=== PATIENT | male | born 1940 | race Caucasian/White ===

== ENCOUNTER 2018-10-24 04:26 | Inpatient (IN) | payer MEDICARE, BC ==
[~2018-10-24] VITALS: Ht 177.8 cm; Wt 103.2 kg
[2018-10-24] VITALS (80 sets, daily range): BP systolic 77–160; BP diastolic 51–95; Ht 177.8 cm; Wt 103.2 kg
[2018-10-24] MEDS ORDERED: COREG6.25 MG PO (04:41)
[2018-10-24] MEDS ORDERED: ELIQUIS5 MG PO (04:41)
[2018-10-24] MEDS ORDERED: BAYER CHEWABLE81 MG PO (04:41)
[2018-10-24] MEDS ORDERED: MAG-OXIDE400 MG PO (04:42)
[2018-10-24] MEDS ORDERED: METOLAZONE5 MG PO (04:42)
[2018-10-24] MEDS ORDERED: ENTRESTO 24 MG1 EACH PO (04:42)
[2018-10-24] MEDS ORDERED: HUMULIN 70100 UNIT/1 SC (04:42)
[2018-10-24] MEDS ORDERED: PREDNISONE10 MG PO (04:43)
[2018-10-24] MEDS ORDERED: MEXITIL250 MG PO (04:43)
[2018-10-24] MEDS ORDERED: BETAPACE 80 MG80 MG PO (04:43)
[2018-10-24] MEDS ORDERED: RESTORIL15 MG PO (04:44)
[2018-10-24] MEDS ORDERED: ULTRAM50 MG PO (04:44)
--- NOTE | 2018-10-24 05:26 | NUR ---
PT REC'D FROM ED VIA STRETCHER ON VENT, ACCOMP BY ED STAFF AND RT. TRANSF, TO ICU BED, BENCH MACHINE OPERATOR ATTACHED. VENT SETTINGS PER RT. LEVOPHED INFUSING TO AT 22MCG/KG/MIN VIA PUMP. CONT LEVOPHED DRIP TO KEEP SBP>90, CONT TO MONITOR.
--- NOTE | 2018-10-24 05:55 | NUR ---
AT BEDSIDE, HISTORY ASSESSMENT COMPLETED, MED REC DONE. JOSEFA Webster APN SPOKE WITH . CPOC,
[2018-10-24 07:49] LABS: APTT 30.2 SECONDS (22.8-39.4); INR 1.47 (0.85-1.17); PROTIME 17.3 SECONDS (11.6-15.0)
[2018-10-24 07:57] LABS: HEMATOCRIT 44.6 % (42.0-54.0); HEMOGLOBIN 15.1 g/dL (13.5-17.5); MCH 31.1 pg (26.0-34.0); MCHC 33.9 g/dL (31.0-37.0); MEAN PLATELET VOLUME 10.7 fL (7.4-10.4); PLATELET COUNT 246 10x3/uL (130-400); RBC 4.85 10x6/uL (4.20-6.10); RDW 13.9 % (11.5-14.5); WBC 29.1 10x3/uL (4.8-10.8)
[2018-10-24 08:02] LABS: ALBUMIN 2.9 g/dL (3.4-5.0); ALKALINE PHOSPHATASE 118 U/L (46-116); ALT (SGPT) 170 U/L (10-68); BILIRUBIN - TOTAL 0.74 mg/dL (0.2-1.3); CALC OSMOLALITY 296 mosm/kg (275-300); CALCIUM 8.5 mg/dL (8.5-10.1); CHLORIDE - SERUM 106 mmol/L (98-107); CKMB 116.8 U/L (0.0-3.6); CREATINE KINASE 1023 UL (21-232); CREATININE - SERUM 2.2 mg/dL (0.6-1.3); GLUCOSE 112 mg/dL (74-106); MAGNESIUM - SERUM 2.1 mg/dL (1.8-2.4); PHOSPHOROUS 2.9 mg/dL (2.5-4.9); POTASSIUM - SERUM 4.4 mmol/L (3.5-5.1); PRO BNP 12829 pg/mL (0-450); PROTEIN - SERUM 6.4 g/dL (6.4-8.2); SODIUM 143 mmol/L (136-145); UREA NITROGEN 44 mg/dL (7-18); eGFR NON AFRICAN AMERICAN 31 mL/min (90-120)
[2018-10-24 08:04] LABS: TROPONIN-I 65.371 ng/mL (0.000-0.060)
--- NOTE | 2018-10-24 08:12 | NUR ---
DR HOLLIS CALLED. UPDATE GIVEN
--- NOTE | 2018-10-24 08:13 | NUR ---
DR DAVID BURTON.
[2018-10-24 09:33] LABS: LYMPHOCYTES 8 % (15-50); MONOCYTES 18 % (2-11); NEUTROPHILS 74 % (40-80); PLATELET ESTIMATE NORMAL
--- NOTE | 2018-10-24 09:45 | NUR ---
SPOKE TO DR SOLIS. UPDATE GIVEN OF FEVER 101.8.
--- NOTE | 2018-10-24 11:45 | NUR ---
DR HERNANDEZ AT BEDSIDE. UPDATE GIVEN
--- NOTE | 2018-10-24 13:15 | NUR ---
DR SOLIS AND DR HERNANDEZ AT BEDSIDE. UPDATE GIVEN. WILL CONTINUE TO MONITOR
--- NOTE | 2018-10-24 15:00 | NUR ---
PATIENT HAS A FEVER. TYLENOL WAS GIVEN. ICE PACKS.
--- NOTE | 2018-10-24 16:51 | CN ---
PATIENT NAME:STEVE VANN MEDICAL RECORD: [id number] : 44 LOCATION:[id number] ADMIT DATE: 10/24/18 ACCOUNT: [id number] CONSULTING PHYSICIAN: CROW HOLLIS MD REFERRING PHYSICIAN: ALIA SOLIS MD DATE OF CONSULTATION: 10/24/2018 CARDIOLOGY CONSULTATION DIAGNOSES: 1. Status post cardiopulmonary arrest. 2. Respiratory failure requiring mechanical intubation. 3. Coronary artery disease. 4. Valvular heart disease. 5. Hypertension. 6. Diabetes. 7. Congestive heart failure, chronic systolic dysfunction. 8. Cardiomyopathy. 9. Chronic obstructive pulmonary disease. 10. Smoking history. HISTORY OF PRESENT ILLNESS: Mr. Vann presented to [facility] with shortness of breath, congestive heart failure symptomatology and it rapidly progressed to cardiopulmonary arrest requiring intubation and CPR for 20 minutes. He was placed on Levophed drip, sent here for higher level of care. The family states that he recently underwent cardiac catheterization in [place] and was told that he had blockage as well as a valvular problem. It sounds like he was being considered for bypass surgery and valve replacement surgery prior to this happening. This was in May. Recently, his Lasix was stopped secondary to his worsening renal insufficiency. After this, the shortness of breath progressed. PHYSICAL EXAMINATION: GENERAL APPEARANCE: Well-nourished, well-developed, appears stated age. Level of distress, comfortable. PSYCHIATRIC: Mental status, alert, normal affect. Orientation, oriented to time, place and person. EYES: Lids and conjunctiva, noninjected. No discharge, no pallor. ENT: Lips, teeth, gums, normal dentition. Oropharynx, no cyanosis, no pallor. NECK: Carotid arteries, bilateral normal upstroke, no bruits, no thrills. JUGULAR VEINS: No jugular venous pressure or distention. CERVICAL LYMPH NODES: Nontender, nonenlarged. THYROID: Not enlarged. Nontender. No nodules. LUNGS: Respiratory effort, unlabored. CHEST: Normal curvature. No thoracic deformity. No chest wall tenderness. Percussion, resonant. Auscultation, clear. No wheezes, no rales, no rhonchi. CARDIOVASCULAR: Precordial exam, nondisplaced. No heaves or pericardial thrills. Rate and rhythm, regular. Heart sounds, normal S1, normal S2. No S3, no gallop, no rub. Systolic murmur, not heard. Diastolic murmur, not heard. EXTREMITIES: No cyanosis, no edema. Peripheral pulses, full and equal in all extremities, except as noted. No bruits appreciated. ABDOMEN: Soft, nondistended. Normal aorta. No bruit. Nontender. No masses. Liver, nontender, no hepatomegaly. Spleen, nontender, no splenomegaly. MUSCULOSKELETAL: No joint tenderness. No joint swelling. No erythema. NEUROLOGICAL: Normal gait, normal strength, normal tone. CONSULT REPORT [id number] STEVE VANN SKIN: Warm and dry. OVERALL IMPRESSION: Cardiomyopathy, valvular heart disease, coronary disease, status post arrest. At this time, his systolic blood pressure is in the 90s, heart rate is in the 80s. His troponin is 65. BNP is markedly elevated at approximately 13,000. We will get an echocardiogram to assess his overall LV function. Consider inotropic therapy if this is depressed, which it most likely will be. We will use antiplatelet, but due to his low blood pressure, we are limited in the amount of cardiac medications we can add. TRANSINT:[id number] Voice Confirmation ID: [id number] DOCUMENT ID: [id number] CROW HOLLIS MD at 1651 CC: [id number] DICTATION DATE: 10/24/18 1121 MARKETING SERVICES REP: 10/24/18 1248 ADM IN [facility] [address] [place] [address]
--- NOTE | 2018-10-24 16:52 | EC ---
PATIENT:TSEVE VANN DATE OF SERVICE: 10/24/18 SEX: M MEDICAL RECORD: [id number] DATE OF : 44 LOCATION:[facility] D231 AGE OF PATIENT: 78 ADMISSION DATE: 10/24/18 REFERRING PHYSICIAN: INTERPRETING PHYSICIAN: CROW MCKINLEY MD ECHOCARDIOGRAM REPORT ECHO CHARGES 4 ECHO COMPLETE Date: 10/24/18 CLINICAL DIAGNOSIS: CHF/ARREST/WY ECHOCARDIOGRAPHIC MEASUREMENTS (adult normal given) AC root (d.<3.7cm) 3.3 cm LV Septum d (<1.2 cm> 1.3 cm Valve Excursion 0.5 cm LV Septum (systole) 1.7 cm Left Atria (s.<4.0cm> 4.8 cm LVPW d(<1.2cm) 1.1 cm RV (d.<2.3cm) 3.6 cm LVPW (sytole) 1.5 cm LV diastole(<5.6CM) 6.1 cm MV E-F(>70mm/sec) cm LV systole 4.5 cm LVOT Diameter 2.1 cm MV exc.(>10mm) cm Est.ejection fraction (50-75%) % DOPPLER: LVIT cm/sec A cm/sec E 92.0 cm/sec LA cm/sec RVSP 39.0 mmHg LVOT 70.0 cm/sec AOP1/2T m/s Asc. Ao 246 cm/sec RVOT 52.0 cm/sec RA cm/sec PA 100 cm/sec AV Gradient Peak 24.3 mmHg AV Mean 12.0 mmHg AV Area 1.0 cm MV Gradient Peak 5.9 mmHg MV Mean 1.9 mmHg MV Area cm COMMENTS: Professional Programmer Analyst: 1 BUSHRA OCASIOOE Nougat Cutter Machine: 1 Dr. Mckinley TAPE# PACS Pericardial Effusion N DATE OF SERVICE: FINDINGS: 1. Left ventricular chamber size is dilated. Left ventricular systolic function is markedly reduced. Overall ejection fraction 15% to 20%. 2. Left atrium is enlarged at 4.8 cm. Right atrium and right ventricular chamber sizes are as well mildly dilated. 3. Valvular structures: Aortic valve demonstrates moderate calcific aortic stenosis, valve area calculates to 1.0 cm-squared. There is a gradient of 24 mm across the valve. The remaining valvular structures have normal structure and ECHOCARDIOGRAM REPORT [id number] STEVE VANN motion. 4. Doppler interrogation elsewise reveals moderate mitral regurgitation, moderate tricuspid regurgitation, no other valvular insufficiency or stenosis. Pulmonary systolic pressure is estimated 39 mmHg. 5. No evidence of pericardial effusion or left ventricular thrombus. TRANSINT:[id number] Voice Confirmation ID: [id number] DOCUMENT ID: [id number] CROW MCKINLEY MD at 1652 CC: [id number] DICTATION DATE: 10/24/18 1308 FOOD MIXER ASSEMBLER: 10/24/18 1319 ADM IN [facility] [place] [id number] [place] [address]
--- NOTE | 2018-10-24 17:00 | NUR ---
PATIENT SEDATED. FAMILY AT BEDSIDE. FAMILY STATED THEY WILL MAKE A CODE STATUS DECISION.
[2018-10-25] VITALS (96 sets, daily range): BP systolic 71–135; BP diastolic 48–98
[2018-10-25 03:13] LABS: BASOPHILS 0 % (0-2); EOSINOPHILS 0 % (0-7); HEMATOCRIT 39.9 % (42.0-54.0); HEMOGLOBIN 13.7 g/dL (13.5-17.5); IMMATURE GRANULOCYTES 0.5 % (0-5); LYMPHOCYTES 5.9 % (15-50); MCH 31.1 pg (26.0-34.0); MCHC 34.3 g/dL (31.0-37.0); MCV 90.5 fL (80.0-100.0); MEAN PLATELET VOLUME 10.2 fL (7.4-10.4); MONOCYTES 5.6 % (2-11); PLATELET COUNT 196 10x3/uL (130-400); RBC 4.41 10x6/uL (4.20-6.10); RDW 14.2 % (11.5-14.5); WBC 25.9 10x3/uL (4.8-10.8)
[2018-10-25 03:30] LABS: ALBUMIN 2.4 g/dL (3.4-5.0); ANION GAP 17.3 mmol/L (8-16); BILIRUBIN - TOTAL 1.06 mg/dL (0.2-1.3); CALCIUM 8.1 mg/dL (8.5-10.1); CARBON DIOXIDE 22.8 mmol/L (21.0-32.0); MAGNESIUM - SERUM 1.9 mg/dL (1.8-2.4); POTASSIUM - SERUM 4.1 mmol/L (3.5-5.1); PROTEIN - SERUM 6.2 g/dL (6.4-8.2); VANCOMYCIN - RANDOM 24.6 ug/mL (10.0-20.0)
[2018-10-25 03:31] LABS: CREATININE - SERUM 3.3 mg/dL (0.6-1.3); PHOSPHOROUS 4.4 mg/dL (2.5-4.9)
--- NOTE | 2018-10-25 07:00 | NUR ---
REC'ED REPORT FROM [facility] RN
--- NOTE | 2018-10-25 07:30 | NUR ---
ASSESSMENT COMPLETE - PT USING ABDOMINAL MUSCLES FOR ASSITANCE IN BREATHING - R.T. AT BEDSIDE FOR TREATMENT - CONT CARD MONITORING - CPOC
--- NOTE | 2018-10-25 09:00 | NUR ---
MEDICTIONS GIVE - DISCUSSED PLAN OF CARE WITH FAMILY - ANSERED ALL QUESTIONS
--- NOTE | 2018-10-25 11:30 | NUR ---
MEDICATIONS GIVEN - SEE MAR
--- NOTE | 2018-10-25 13:00 | NUR ---
DR. SOLIS AT BEDSIDE - DISCUSSED PLAN OF CARE WITH FAMILY - ORDERED DOBUTINE TO TITRATE NEOEPI DOWN TO D/C - WILL TITRATE TO TOLERATED - CPOC AND MONTIOR CLOSELY
--- NOTE | 2018-10-25 14:10 | NUR ---
BS CHECK - MED GIVEN SEE MAR
--- NOTE | 2018-10-25 15:00 | NUR ---
ALBUMIN GIVEN - FAMILY AT BEDSIDE - CPOC
--- NOTE | 2018-10-25 17:10 | NUR ---
B/S CHECKED - INSULIN GIVEN SEE MAR
[2018-10-25 17:38] LABS: APPEARANCE CLEAR (CLEAR); BILIRUBIN NEGATIVE (NEGATIVE); COLOR YELLOW (YELLOW); GLUCOSE NEGATIVE (NEGATIVE); KETONE NEGATIVE (NEGATIVE); NITRITE NEGATIVE (NEGATIVE); PROTEIN TRACE mg/dL (NEGATIVE); RED CELLS - URINE 0-5 /hpf (0-5); UROBILINOGEN NORMAL (NORMAL); WHITE CELLS - URINE NSEEN /hpf (0-5)
--- NOTE | 2018-10-25 18:00 | NUR ---
BATH GIVEN - SLIDE PLACED UNDER PT - TURENED PT ON LEFT SIDE - TEMP DOWN TO 99.0 - CPOC
--- NOTE | 2018-10-25 19:00 | NUR ---
SHIFT ASSESSMENT COMPLETE. VS STABLE. NO VISUAL CUES OF DISTRESS NOTED. WILL CONTINUE TO MONTTOR.
--- NOTE | 2018-10-25 19:10 | NUR ---
R.T. AT BEDSIDE - PT POX DOWN TO 84% - TUREND PT BACK TO RIGHT SIDE - POC UP TO 95% PER CCM. CPOC
[2018-10-26] VITALS (79 sets, daily range): BP systolic 85–141; BP diastolic 47–87
--- NOTE | 2018-10-26 02:12 | NUR ---
LAB PERSONNEL HAS NOT BEEN IN PATIENT' ROOM TO OBTAIN BLOOD CULTURES. CALLED AND SPOKE TO VALERIA FROM LAB, SHE STATED SHE WILL GET SOMEONE TO COME DRAW BLOOD SOON SOMEONE IS AVAILABLE.
[2018-10-26 06:37] LABS: BASOPHILS 0.1 % (0-2); EOSINOPHILS 0 % (0-7); HEMATOCRIT 36.1 % (42.0-54.0); HEMOGLOBIN 12.1 g/dL (13.5-17.5); IMMATURE GRANULOCYTES 0.3 % (0-5); LYMPHOCYTES 5.7 % (15-50); MCH 30.4 pg (26.0-34.0); MCHC 33.5 g/dL (31.0-37.0); MCV 90.7 fL (80.0-100.0); MEAN PLATELET VOLUME 10.2 fL (7.4-10.4); MONOCYTES 5.7 % (2-11); NEUTROPHILS 88.2 % (40-80); PLATELET COUNT 133 10x3/uL (130-400); RBC 3.98 10x6/uL (4.20-6.10); RDW 14.5 % (11.5-14.5)
[2018-10-26 07:12] LABS: ALBUMIN 2.3 g/dL (3.4-5.0); ANION GAP 14.6 mmol/L (8-16); BILIRUBIN - TOTAL 0.91 mg/dL (0.2-1.3); CALCIUM 8.1 mg/dL (8.5-10.1); CREATININE - SERUM 3.7 mg/dL (0.6-1.3); POTASSIUM - SERUM 3.6 mmol/L (3.5-5.1); PROTEIN - SERUM 6.1 g/dL (6.4-8.2)
[2018-10-26 07:14] LABS: PHOSPHOROUS 5.6 mg/dL (2.5-4.9); TROPONIN-I 14.065 ng/mL (0.000-0.060)
--- NOTE | 2018-10-26 07:15 | NUR ---
REPORT RECEIVED. PT ON VENT. SETTINGS PER RT. PT HAS RIGHT UPPER ARM PICC WITH PROPOFOL AT 27MCG, LEVOPHED AT 6MCG, DOBUTAMINE AT 10MCG, BUMEX AT 3.5ML, AND NS AT KVO INFUSING. PT HAS FOX. PT HAS BEEN RUNNING LOW GRADE FEVER. HE HAS A NGT TO LEFT NARE. PT IS IN RESTRAINTS. HEAD TO TOE ASSESSMENT DONE. VSS. WILL CONTINUE TO MONITOR.
--- NOTE | 2018-10-26 09:00 | NUR ---
FAMILY AT BEDSIDE. UPDATED. NO QUESTIONS AT THIS TIME. VSS. WILL CONTINUE TO MONITOR.
--- NOTE | 2018-10-26 11:00 | NUR ---
PT REPOSITIONED AND SUCTIONED. VSS. WILL WEAN DOWN LEVOPHED PER DR SOLIS'S VERBAL ORDER.
--- NOTE | 2018-10-26 12:00 | NUR ---
STOPPED BUMEX PER DR SOLIS. VSS. WILL CONTINUE TO MONITOR.
--- NOTE | 2018-10-26 14:45 | NUR ---
PT REPOSITIONED AND SUCTIONED. VSS.
--- NOTE | 2018-10-26 15:00 | NUR ---
REASSESSMENT DONE. VSS. LEVOPHED WEANED DOWN TO 2MCG/KG/MIN. PT SUCTIONED AND REPOSITIONED. WILL CONTINUE TO MONITOR.
--- NOTE | 2018-10-26 16:15 | NUR ---
[facility] HELD D/T VANC TROUGH BEING ELEVATED AND PER PHARMACY. RANDOM VANC WILL BE DRAWN TOMORROW.
--- NOTE | 2018-10-26 19:17 | NUR ---
REPORT RECEIVED, SHIFT ASSESSMENT COMPLETED PER FLOW SHEET. SEDATED ON VENT VIA ETT. PPP. RT UPPER ARM PICC LINE PATENT, NO SIGNS OF INFECTION OR INFILTRATION. DIPRIVAN TURNED OFF FOR SEDATION VACATION. WILL CONTINUE TO MONITOR. SEE FLOW SHEET FOR COMPLETE ASSESSMENT.
--- NOTE | 2018-10-26 21:50 | NUR ---
SON AT BEDSIDE, UPDATE GIVEN, QUESTIONS ANSWERED.
--- NOTE | 2018-10-26 22:04 | NUR ---
TEMPERATURE REMAINS ELEVATED DESPITE TYLENOL GIVEN. PAGED DR. SOLIS, [facility] [place] MARITIME OFFICER. WILL WAIT FOR CALL BACK.
--- NOTE | 2018-10-26 22:23 | NUR ---
NO CALL RETURNED FROM [facility] [place] APN. PAGED HER AGAIN AT THIS TIME. WILL WAIT FOR CALL BACK.
--- NOTE | 2018-10-26 23:09 | NUR ---
REASSESSMENT COMPLETED PER FLOW SHEET, SEE FOR DETAILS. PPP. ORAL CARE PROVIDED. WILL CONTINUE TO MONITOR.
--- NOTE | 2018-10-26 23:25 | NUR ---
[facility] [place] HAS NOT RETURNED CALL. CALLED AND SPOKE TO DR. SOLIS. UPDATE GIVEN ON PATIENT'S CURRENT STATUS. NEW ORDERS RECEIVED.
[2018-10-27] VITALS (14 sets, daily range): BP systolic 89–133; BP diastolic 47–68
--- NOTE | 2018-10-27 01:00 | NUR ---
ORAL CARE PROVIDED. REPOSITIONED IN BED.
--- NOTE | 2018-10-27 02:12 | NUR ---
LAB PERSONNEL HAS NOT BEEN IN PATIENT'S ROOM TO OBTAIN BLOOD CULTURES. CALLED AND SPOKE TO VALERIA FROM LAB, SHE STATED SHE WILL GET SOMEONE TO COME DRAW BLOOD SOON SOMEONE IS AVAILABLE.
--- NOTE | 2018-10-27 05:00 | NUR ---
COMPLETE BED BATH GIVEN. COMPLETE BED LINEN CHANGE PROVIDED. ORAL CARE PROVIDED. REPOSITIONED IN BED.
[2018-10-27 05:57] LABS: BASOPHILS 0.1 % (0-2); EOSINOPHILS 0 % (0-7); HEMATOCRIT 36.9 % (42.0-54.0); HEMOGLOBIN 12.1 g/dL (13.5-17.5); IMMATURE GRANULOCYTES 0.2 % (0-5); LYMPHOCYTES 6.3 % (15-50); MCH 30.4 pg (26.0-34.0); MCHC 32.8 g/dL (31.0-37.0); MEAN PLATELET VOLUME 10.7 fL (7.4-10.4); MONOCYTES 8.2 % (2-11); NEUTROPHILS 85.2 % (40-80); PLATELET COUNT 126 10x3/uL (130-400); RBC 3.98 10x6/uL (4.20-6.10); RDW 14.2 % (11.5-14.5); WBC 12.5 10x3/uL (4.8-10.8)
[2018-10-27 06:00] LABS: MCV 92.7 fL (80.0-100.0)
[2018-10-27 06:11] LABS: ALBUMIN 2.3 g/dL (3.4-5.0); BILIRUBIN - TOTAL 0.9 mg/dL (0.2-1.3); CALCIUM 7.9 mg/dL (8.5-10.1); CARBON DIOXIDE 30.4 mmol/L (21.0-32.0); CREATININE - SERUM 3.9 mg/dL (0.6-1.3); MAGNESIUM - SERUM 1.8 mg/dL (1.8-2.4); PROTEIN - SERUM 6.3 g/dL (6.4-8.2); VANCOMYCIN - TROUGH 21.5 ug/mL (10.0-20.0)
[2018-10-27 06:14] LABS: ANION GAP 10.6 mmol/L (8-16)
--- NOTE | 2018-10-27 06:40 | NUR ---
AND SON AT BEDSIDE. CHARGE NURSE SUDARSHAN MERAZ AND THIS NURSE DISCUSSED DNR STATUS. DNR STATUS UPDATED. PER 'S AND SON'S REQUEST, NO EMERGENCY DRUGS.
--- NOTE | 2018-10-27 07:15 | NUR ---
REPORT RECEIVED. PT ON VENT PER RT SETTINGS. PT HAS RIGHT PICC LINE. NS AT KVO AND DOBUTAMINE AT 10MCG/HR INFUSING. PT HAS NGT TO LEFT NARE. TUBE FEEDINGS IN PLACE. PULMOCARE AT 25ML/HR WITH FLUSH AT 25ML/HR WHICH IS GOAL. PT HAS DOMINIQUE. TOLD IN REPORT THAT PT'S FAMILY WANTS TO SPEAK WITH DOCTORS REGARDING COMFORT CARE. WILL FOLLOW UP.
--- NOTE | 2018-10-27 08:11 | NUR ---
PT TEMPT 103.3 AXILLARY. WENT TO PULL TYLENOL. NOT ENOUGH IN PYXIS. CALLED PHARMACY TO GET SOME BROUGHT UP THEN WILL ADMINISTER TO PT. WILL CONTINUE TO MONITOR.
--- NOTE | 2018-10-27 08:30 | NUR ---
ORAL CARE PERFORMED ON PT. MOISTURIZER APPLIED. ICE PACKS APPLIED TO UNDERARMS. FAN TURNED ON IN ROOM. WAITING ON TYLENOL AT THIS TIME. WILL CONTINUE TO MONITOR.
--- NOTE | 2018-10-27 09:17 | NUR ---
TEMP RECHECKED. 103.2 ORALLY. TYLENOL GIVEN VIA NGT. FAMILY AT BEDSIDE. UPDATED. WAITING ON DOCTORS AT THIS TIME.
--- NOTE | 2018-10-27 09:38 | NUR ---
NUTRITION F/U PT REMAINS ON VENT, PULMOCARE AT 25 CC/HR. WILL SPEAK WITH NURSING ~ GOAL RATE. PREVIOUS RECOMMENDATION IS 55 CC/HR. RD FOLLOWING
--- NOTE | 2018-10-27 10:25 | NUR ---
TEMP RECHECKED. 102.6 ORALLY. MORE FAMILY AT BEDSIDE. DR JOVEL ON UNIT ROUNDING. SPOKE WITH HIM ABOUT FAMILY WANTING TO SPEAK WITH DOCTOR ABOUT COMFORT CARE. STATED HE WOULD LET ME KNOW WHEN HE GETS READY TO GO IN THERE SO I CAN GET FAMILY. SHOWED THEM THE CONFERENCE/FAMILY ROOM THAT THEY CAN USE AT THEIR LEISURE DURING THIS TIME. VERBALIZED UNDERSTANDING. WILL CONTINUE TO MONITOR.
--- NOTE | 2018-10-27 11:00 | NUR ---
DR JOVEL MET WITH PT'S AND CHILDREN. DETERMINED THAT THEY WANTED TO TERMINALLY EXTUBATE THE PT AND DO COMFORT MEASURES.
--- NOTE | 2018-10-27 12:20 | NUR ---
PT SUCTIONED AND ORAL CARE PROVIDED. CLEANED UP PT'S FACE FOR FAMILY. WILL CONTINUE TO MONITOR.
--- NOTE | 2018-10-27 13:30 | NUR ---
10MG OF MORPHINE GIVEN IV PUSH. TOOK DOWN TUBE FEED, IV DRIPS. CLEANED UP ROOM. WILL EXTUBATE IN 30 MINUTES.
--- NOTE | 2018-10-27 14:12 | NUR ---
PT EXTUBATED. PT'S CHILDREN AT BEDSIDE. O2 SAT STEADILY DROPPED. WILL MONITOR.
--- NOTE | 2018-10-27 14:51 | NUR ---
WAITING ON DR JOVEL TO COME PRONOUNCE PT. NO RESP. NO PULSE. PT DOES HAVE PACEMAKER.
--- NOTE | 2018-10-27 15:14 | NUR ---
DR. JULES AT BEDSIDE TO PRONOUNCE
--- NOTE | 2018-10-27 15:35 | NUR ---
BREANA NOTIFIED OF PT
--- NOTE | 2018-10-27 15:40 | NUR ---
HOME NOTIFIED OF NEED OF SERVICES
--- NOTE | 2018-10-27 16:15 | NUR ---
POSTMORTEM CARE PROVIDED TO PT. WAITING ON HOME TO SALES TRADER.
--- NOTE | 2018-10-27 16:40 | NUR ---
HOME HERE FOR PT
--- NOTE | 2018-10-27 16:49 | MORECARE ---
CASE MANAGEMENT DISCHARGE SUMMARY PATIENT: STEVE VANN UNIT: [id number] ADM DATE: 10/24/18 AGE: 78 : 42 SEX: M ROOM/BED: D.2315 AUTHOR: RUCHI HERNANDEZ PHYSICIAN: REFERRING PHYSICIAN: ALIA SOLIS MD DATE OF SERVICE: 10/27/18 Discharge Plan Patient Name: STEVE VANN [facility] [facility] 1940 Planned Disposition: Anticipated Discharge Date: Discharge Date: 10/27/2018 Expected LOS: Initial Reviewer: [email or web address] Initial Review Date: 10/27/2018 Generated: 10/27/18 5:48 pm Patient Name: STEVE VANN Page [phone] at 1649 All edits/amendments must be made on the electronic document DICTATION DATE: 10/27/181647 UX DESIGN MANAGER: JOSÉ 10/27/181647 RPT#: [id number] DC DATE:10/27/18 STATUS: DIS IN [facility] [address] [place] [address] END OF REPORT
--- NOTE | 2018-10-27 17:00 | MORECARE ---
CASE MANAGEMENT DISCHARGE SUMMARY PATIENT: STEVE VANN UNIT: [id number] ADM DATE: 10/24/18 AGE: 78 : 42 SEX: M ROOM/BED: D.2315 AUTHOR: RUCHI HERNANDEZ PHYSICIAN: REFERRING PHYSICIAN: ALIA SOLIS MD DATE OF SERVICE: 10/27/18 Discharge Plan Patient Name: STEVE VANN [facility] [facility] 1940 Planned Disposition: Anticipated Discharge Date: Discharge Date: 10/27/2018 Expected LOS: Initial Reviewer: [email or web address] Initial Review Date: 10/27/2018 Generated: 10/27/18 6:00 pm Comments DCP- Discharge Planning Updated by ITZ: Priya Bhakta on 10/27/18 3:[address] Patient Name: STEVE VANN Admission Status: ER Accout number: [id number] Admission Date: 10-24-2018 : 1940 Admission Diagnosis: Attending: ALIA SOLIS Current LOS: 3 Anticipated DC Date: Planned Disposition: Primary Insurance: MEDICARE A & B Discharge Planning Comments: CM notified that family is planning terminal extubation today. CM will arrange hospice care if needed. Patient shortly after extubation. Epic Director: Priya Bhakta Coverage Notice Reviewer: [id number] - Priya Bhakta Notice Issued Date-Time: 10/27/2018 13:30 Notice Type: IM Discharge Notice Notice Delivered To: Family Member Relationship to Patient: Spouse Design Verification Engineer Name: BRADFORD VANN Delivery Method: HAND - Hand Delivered Rhonda Days: Prior Verbal Notification: Recipient Understood Notice: Yes Recipient Signature: Yes Med Rec Note Co-signed by Attending: Coverage Notice Comment: Last DP export: 10/27/18 3:49 p Patient Name: STEVE VANN Page [phone] at 1700 All edits/amendments must be made on the electronic document DICTATION DATE: 10/27/18 1700 STAKING ENGINEER: JOSÉ 10/27/18 1700 RPT#: [id number] DC DATE:10/27/18 STATUS: DIS IN [facility] [address] [place] [address] END OF REPORT
--- NOTE | 2018-10-30 17:00 | NUR ---
Per CMS protocol, restraint report logged into data base.
== END 2018-10-27 15:14 | DRG 871 ==
LOC: D.ER 04:26 → D.ICU 04:36
PROVIDERS: Internal Medicine Pulmonary Disease; ADMIT Internal Medicine Nephrology; ATTEND Internal Medicine Nephrology
PROC: 05HY33Z Insertion of Infusion Device into Upper Vein, Percutaneous Approach (ICD-10-PCS; principal; 2018-10-24)
PROC: 5A1945Z Respiratory Ventilation, 24-96 Consecutive Hours (ICD-10-PCS; 2018-10-24)
DX: A41.9 Sepsis, unspecified organism (principal); R65.21 Severe sepsis with septic shock; I50.23 Acute on chronic systolic (congestive) heart failure; J18.9 Pneumonia, unspecified organism; K72.00 Acute and subacute hepatic failure without coma; J96.21 Acute and chronic respiratory failure with hypoxia; G93.1 Anoxic brain damage, not elsewhere classified; I13.0 Hypertensive heart and chronic kidney disease with heart failure and stage 1 through stage 4 chronic kidney disease, or unspecified chronic kidney disease; N17.9 Acute kidney failure, unspecified; J44.1 Chronic obstructive pulmonary disease with (acute) exacerbation; E87.2 Acidosis; I24.9 Acute ischemic heart disease, unspecified; I46.2 Cardiac arrest due to underlying cardiac condition; E11.22 Type 2 diabetes mellitus with diabetic chronic kidney disease; N18.9 Chronic kidney disease, unspecified; E11.21 Type 2 diabetes mellitus with diabetic nephropathy; E11.40 Type 2 diabetes mellitus with diabetic neuropathy, unspecified; R60.1 Generalized edema; I25.5 Ischemic cardiomyopathy; Z95.0 Presence of cardiac pacemaker; G89.29 Other chronic pain; M19.90 Unspecified osteoarthritis, unspecified site; I25.10 Atherosclerotic heart disease of native coronary artery without angina pectoris